=== PATIENT | male | born 1950 | race Caucasian/White ===

== ENCOUNTER 2017-07-24 22:04 | Inpatient (IN) | payer BC, OTHER ==
[~2017-07-24] VITALS: Ht 177.8 cm; Wt 108.9 kg
[~2017-07-24 22:04] MED LIST: AMLODIPINE BESYL5 MG PO; CELEBREX200 MG PO; CHILD ASPIRIN81 M1 PO; CIALIS10 MG PO; CIPRO500 MG PO; CLOBETASOL PROP60 GM TP; COUMADIN,JANTOVE1 MG PO; DILAUDID2 MG PO; FEOSOL325 MG PO; FERROUS SULFAT325 MG PO; Feosol PO; GLUCOPHAGE1000 MG PO; GLUCOPHAGE500 MG PO; HYDROCODON-ACE1 EAC7 PO; LISINOPRIL20 MG PO; MINOCYCLINE HC100 MG PO; NOVOLOG MI100 UNIT/2 SC; Nucynta PO; PRAVACHOL80 MG PO; PRAVASTATIN SOD40 MG PO; TAMSULOSIN HCL0.4 MG PO; TOPROL XL100 MG PO; TOPROL XL50 MG PO; VITAMIN D31000 UNI2 PO; XARELTO10 MG PO; Zestril,Prinivil PO
[2017-07-25 07:41] VITALS: BP 124/76
[2017-07-25 07:43] VITALS: BP 124/76
[2017-07-25 13:30] VITALS: BP 113/74
[2017-07-25 15:34] VITALS: BP 121/70
[2017-07-25 20:12] VITALS: BP 133/74
[2017-07-26 00:09] VITALS: BP 136/81
[2017-07-26 04:07] VITALS: BP 126/82
[2017-07-26 04:56] LABS: HEMATOCRIT 33.7 % (38.0-50.0); MCV 83.6 FL (86-99)
[2017-07-26 05:01] LABS: HEMOGLOBIN 11.6 G/DL (12.5-16.6)
[2017-07-26 07:57] VITALS: BP 146/83
[2017-07-26] MEDS ORDERED: BENADRYL25 MG PO (10:03)
[2017-07-26] MEDS ORDERED: TYLENOL REGULA325 MG PO (10:04)
[2017-07-26] MEDS ORDERED: SENNA PLUS TAB1 EACH PO (10:04)
[2017-07-26] MEDS ORDERED: HYDROCODON-ACE1 EAC7 PO (10:05)
== END 2017-07-26 10:43 | disposition home or self-care (01) | DRG 483 ==
LOC: ENRESERV 22:04 → 2SOUTH 07-25 06:49 → 3WEST 07-25 13:30 → 2SOUTH 07-25 13:43 → 3WEST 07-26 10:43
PROVIDERS: Orthopaedic Surgery
PROC: 0RRJ00Z Replacement of Right Shoulder Joint with Reverse Ball and Socket Synthetic Substitute, Open Approach (ICD-10-PCS; principal; 2017-07-25)
DX: M19.011 Primary osteoarthritis, right shoulder (principal); G89.29 Other chronic pain; M75.101 Unspecified rotator cuff tear or rupture of right shoulder, not specified as traumatic; I10 Essential (primary) hypertension; E11.9 Type 2 diabetes mellitus without complications; L10.9 Pemphigus, unspecified; Z96.643 Presence of artificial hip joint, bilateral; Z96.653 Presence of artificial knee joint, bilateral
CPT/HCPCS: 82948; 85014; 85018; C1713; J0131; J0330; J0690; J1100; J1170; J1815; J1885; J2250; J2405; J2795; J3370; J7030; J7050; S0020

== ENCOUNTER 2018-01-02 07:37 | Day surgery (SDC) | payer BC, OTHER ==
[~2018-01-02] VITALS: Ht 180.3 cm; Wt 106.5 kg
[~2018-01-02 07:37] MED LIST changes: +ALEVE220 MG PO; +ASPIRIN81 M2 PO; +BENADRYL25 MG PO; +SENNA PLUS TAB1 EACH PO; +TYLENOL REGULA325 MG PO
[2018-01-02 08:32] VITALS: BP 133/88
[2018-01-02 14:07] VITALS: BP 128/70
[2018-01-02 15:23] VITALS: BP 137/78
== END 2018-01-02 15:45 | disposition home or self-care (01) ==
LOC: SDC 07:37
PROVIDERS: Orthopaedic Surgery
PROC: [UNRECOGNIZED PROCEDURE] (principal; 2018-01-02)
DX: M19.072 Primary osteoarthritis, left ankle and foot (principal); M25.572 Pain in left ankle and joints of left foot; I10 Essential (primary) hypertension; E11.9 Type 2 diabetes mellitus without complications; L10.9 Pemphigus, unspecified; E78.5 Hyperlipidemia, unspecified; Z86.14 Personal history of Methicillin resistant Staphylococcus aureus infection; Z96.643 Presence of artificial hip joint, bilateral; Z96.653 Presence of artificial knee joint, bilateral; Z96.611 Presence of right artificial shoulder joint; Z88.5 Allergy status to narcotic agent; Z88.8 Allergy status to other drugs, medicaments and biological substances; Z79.84 Long term (current) use of oral hypoglycemic drugs; Z79.82 Long term (current) use of aspirin
CPT/HCPCS: 73610; 76000; 82948; J0690; J1170; J2250; J2795; J3010; S0020